=== PATIENT | female | born 1985 | race American Indian/Alaskan Native ===

== ENCOUNTER 2019-09-11 09:40 | Emergency (ER) | payer MEDICAID ==
--- NOTE | 2019-09-11 12:20 | Emergency Department Report ---
Minor Respiratory - HPI Chief Complaint: Upper Respiratory Infection Stated Complaint: FLU SX Time Seen by Provider: 09/11/19 12:19 Pain Location: Chest Minor Respiratory: Yes Able to Tolerate Fluids, Yes Cough, No Rhinorrhea, No Sore Throat, No Ear Pain, No Sick Contacts, No Hemoptysis, No Chest Pain, No Shortness of Breath, No Fever Other History: 34 YO AA FEMALE COMES TO ER WITH 2 M HX OF COUGH. HAS NOT SEEN PCP. DENIES SMOKING. NO FEVER OR CHILLS. NO SPUTUM. NO TRAVEL.. ED Review of Systems ROS: Stated complaint: FLU SX Other details as noted in HPI Comment: All other systems reviewed and negative ED Past Medical Hx - Past Medical History Previous Medical History?: No - Surgical History Past Surgical History?: No - Medications Home Medications: Home Medications Medication Instructions Recorded Confirmed Last Taken Type Albuterol INH(or & Nicu Only) 2 puff IH QID PRN #1 inhalation 09/11/19 Unknown Rx [ProAir HFA Inhaler] Benzonatate [Tessalon Perles] 100 mg PO Q12H PRN #20 capsule 09/11/19 Unknown Rx predniSONE [Deltasone] 20 mg PO DAILY #5 tablet 09/11/19 Unknown Rx Minor Respiratory Exam - Exam General: Vital signs noted. No distress. Alert and acting appropriately. HEENT: Yes Moist Mucous Membranes, No Pharyngeal Erythema, No Pharyngeal Ex udates, No Rhinorrhea, No Conjuctival Injection, No Frontal Tenderness, No Maxillary Tenderness Ear: Neither TM Bulge, Neither TM Erythema, Neither EAC Pain, Neither EAC Disch arge Neck: Yes Supple, No Adenopathy Lungs: Yes Good Air Exchange, No Wheezes, No Ronchi, No Stridor, No Cough, No Labored Respirations, No Retractions, No Use of Accessory Muscles, No Other Abnormal Lung Sounds Heart: Yes Regular, No Murmur Abdomen: Yes Normal Bowel Sounds, No Tenderness, No Peritoneal Signs Skin: No Rash, No Edema Neurologic: Alert and oriented, no deficits. Musculoskeletal: Unremarkable. ED Medical Decision Making - Radiology Data Radiology results: report reviewed, image reviewed - Medical Decision Making XRAY NEG VSS NO FEVER OR CHILLS NON SMOKER NO TRAVEL NO LIFE THREAT DC HOME WITH FOLLOW UP WITH PCP VS ARE NORMAL DOCUMENTED BY RN - Differential Diagnosis COUGH Critical care attestation.: If time is entered above; I have spent that time in minutes in the direct care of this critically ill patient, excluding procedure time. ED Disposition Clinical Impression: Cough Disposition: DC-01 TO HOME OR SELFCARE Is pt being admited?: No Does the pt Need Aspirin: No Condition: Stable Instructions: Chronic Cough (ED) Additional Instructions: MEDS ORDERED TODAY FOLLOW UP WITH PCP NEXT WEEK REFERRAL BELOW STAY WELL HYDRATED Referrals: JENNIFER KRAFT MD [Staff Physician] - 3-5 Days Time of Disposition: 13:30
[2019-09-11] MEDS ORDERED: predniSONE 20 MG TAB PO ONE (12:25)
[2019-09-11] MEDS ORDERED: ALBUTEROL 2.5 MG/3 ML NEBU IH ONE (12:25)
--- NOTE | 2019-09-11 13:32 | XRay Report ---
CHEST 2 VIEWS INDICATION: cough. COMPARISON: None. FINDINGS: Support devices: None. Heart: Within normal limits. Pulmonary vasculature: Normal. Lungs/pleura: No acute air space or interstitial disease. No pneumothorax. Additional findings: None. IMPRESSION: 1. Normal chest. Signer Name: Luis Fernando Benjamin MD Signed: 09/11/2019 1:28 PM Workstation Name: [id number]
== END 2019-09-11 14:40 | disposition home or self-care (01) ==
LOC: ED 09:40
DX: R05 Cough (principal); R07.89 Other chest pain
CPT/HCPCS: 71046; 94640; 99283; J7512